=== PATIENT | female | born 1950 | race Caucasian/White ===

== ENCOUNTER → 2017-11-08 | Outpatient (CLI) | payer MEDICARE, OTHER ==
[~2017-11-08] MED LIST: AMLO10 PO; ATOR10 PO; CEPH500 PO; ELIQUIS5 MG PO; ENAL10; ESTR.05TPW; FELO5CR; HYDACE5 PO; HYDCHL25 PO; LOSHYD PO; MELA3 PO; PARO20 PO; RANI150 PO; ROFE25 PO
== END | disposition home or self-care (01) ==
LOC: LAB 14:17 → LAB SHORT 14:17
DX: R30.0 Dysuria (principal)
CPT/HCPCS: 87086

== ENCOUNTER 2017-11-18 08:48 | Day surgery (SDC) | payer MEDICARE, OTHER ==
[~2017-11-18] VITALS: Ht 167.6 cm; Wt 111.1 kg
[~2017-11-18 08:48] MED LIST changes: +ALBUTEROL MDI; +Omeprazole20 M1 PO; -RANI150 PO; +VITAMIN D350000 UNIT PO; +Zantac150 MG PO
== END 2017-11-18 23:30 | disposition home or self-care (01) ==
LOC: ORSCMMR 08:48 → ORD 10:00 → ORSCMMR 10:00
PROVIDERS: Internal Medicine Gastroenterology
PROC: 0DBN8ZX Excision of Sigmoid Colon, Via Natural or Artificial Opening Endoscopic, Diagnostic (ICD-10-PCS; principal; 2017-11-18 10:00)
PROC: 0DBK8ZX Excision of Ascending Colon, Via Natural or Artificial Opening Endoscopic, Diagnostic (ICD-10-PCS; principal; 2017-11-18 10:00)
PROC: 0DBL8ZX Excision of Transverse Colon, Via Natural or Artificial Opening Endoscopic, Diagnostic (ICD-10-PCS; principal; 2017-11-18 10:00)
DX: Z12.11 Encounter for screening for malignant neoplasm of colon (principal); K63.5 Polyp of colon; K57.30 Diverticulosis of large intestine without perforation or abscess without bleeding; K64.8 Other hemorrhoids; G47.33 Obstructive sleep apnea (adult) (pediatric); I48.91 Unspecified atrial fibrillation; I10 Essential (primary) hypertension; F32.9 Major depressive disorder, single episode, unspecified; E78.00 Pure hypercholesterolemia, unspecified; K21.9 Gastro-esophageal reflux disease without esophagitis; Z79.899 Other long term (current) drug therapy
CPT/HCPCS: 88305; J2250; J3010; J7030; J7120

== ENCOUNTER 2018-01-22 11:34 | Day surgery (SDC) | payer MEDICARE, OTHER ==
[~2018-01-22] VITALS: Ht 165.1 cm; Wt 110.2 kg
[~2018-01-22 11:34] MED LIST changes: -ALBUTEROL MDI; +ALBUTEROL MDI INH; +DIAZ1KIT4 PO; +Estrace Vagin42.5 GM VAG; +Flonase 0.05% N16 GM; +TRAZ50 PO
[2018-01-23 04:10] LABS: BASOPHILS ABSOLUTE AUTO 0.01 K/mm3 (0.00-0.23); BASOPHILS PERCENT AUTO 0 % (0-2); EOSINOPHILS PERCENT AUTO 0 % (0-6); Hematocrit 35.6 % (33.0-51.0); Hemoglobin 11.8 g/dL (11.5-16.0); IMMATURE GRAN ABSOLUTE AUTO 0.05 K/mm3 (0.00-0.10); IMMATURE GRAN PERCENT AUTO 0 % (0-1); LYMPHOCYTES ABSOLUTE AUTO 0.91 K/mm3 (0.84-5.20); LYMPHOCYTES PERCENT AUTO 8 % (21-46); MONOCYTES ABSOLUTE AUTO 0.43 K/mm3 (0.16-1.47); MONOCYTES PERCENT AUTO 4 % (4-13); Mean Corpuscular HGB 28.3 pg (26.0-34.0); Mean Corpuscular HGB Conc 33.1 g/dL (31.5-36.5); Mean Corpuscular Volume 85 fL (80-100); Mean Platelet Volume 10.1 fL (9.1-12.4); NEUTROPHILS ABSOLUTE AUTO 10.44 K/mm3 (1.96-9.15); NEUTROPHILS PERCENT AUTO 88 % (41-73); Platelet Count 243 K/mm3 (150-400); RDW Coefficient Variation 12.5 % (11.7-14.2); Red Blood Cell Count 4.17 M/mm3 (3.80-5.20); White Blood Cell Count 11.84 K/mm3 (4.00-11.30)
[2018-01-23 04:26] LABS: Anion Gap 11 mmol/L (6-16); Blood Urea Nitrogen 17 mg/dL (8-24); Bun/Creatinine Ratio 21.7 (12.0-20.0); CO2, Blood 24 mmol/L (21-32); Calcium, Blood 8.8 mg/dL (8.5-10.1); Chloride, Blood 99 mmol/L (98-108); Creatinine, Blood 0.78 mg/dL (0.40-1.00); Glomerular Filtration Rate >60 (60-); Glucose, Blood 167 mg/dL (70-99); Magnesium, Blood 2.4 mg/dL (1.6-2.4); Sodium, Blood 134 mmol/L (136-145)
[2018-01-23] MEDS ORDERED: OXYC5 PO (13:45)
[2018-01-23] MEDS ORDERED: PROM25 PO (13:47)
== END 2018-01-23 16:18 | disposition home or self-care (01) ==
LOC: ORSCMMR 11:34 → ORD 13:30 → SURS 17:17 → ORSCMMR 01-23 16:18
PROVIDERS: Orthopaedic Surgery
PROC: 0SRC0J9 Replacement of Right Knee Joint with Synthetic Substitute, Cemented, Open Approach (ICD-10-PCS; principal; 2018-01-22 13:30)
PROC: 8E0YXBZ Computer Assisted Procedure of Lower Extremity (ICD-10-PCS; principal; 2018-01-22 13:30)
DX: M17.11 Unilateral primary osteoarthritis, right knee (principal); I10 Essential (primary) hypertension; I48.91 Unspecified atrial fibrillation; G47.33 Obstructive sleep apnea (adult) (pediatric); Z87.891 Personal history of nicotine dependence; E03.9 Hypothyroidism, unspecified; E66.01 Morbid (severe) obesity due to excess calories; Z68.39 Body mass index [BMI] 39.0-39.9, adult; Z79.899 Other long term (current) drug therapy; Z99.81 Dependence on supplemental oxygen
CPT/HCPCS: 36415; 73560-RT; 80048; 82565; 82947; 83735; 85025; 86850; 86900; 86901; 88300; 94640; 94762; 97110; 97116; 97162; 97530; C1713; C1776; G8978; G8979; G8980; J0171; J0690; J0735; J1100; J1815; J1885; J2250; J2370; J2405; J2795; J3010; J7120; Q0163

== ENCOUNTER → 2021-08-28 | Outpatient (CLI) | payer MEDICARE, OTHER ==
[~2021-08-28] MED LIST changes: +METF500C PO; +OXYC5 PO; +PROM25 PO; +Percocet 5-3251 EACH PO
[2021-08-28 19:43] LABS: Alanine Aminotransfer (ALT/SGP 19 U/L (12-78); Albumin, Blood 3.9 g/dL (3.4-5.0); Albumin/Globulin Ratio 1.1 (0.8-1.8); Alk Phos 80 U/L (50-136); Anion Gap 5 mmol/L (6-16); Aspartate Aminotrans (AST/SGOT 12 U/L (12-37); Bilirubin, Total 0.8 mg/dL (0.1-1.0); Blood Urea Nitrogen 13 mg/dL (8-24); CHOL/HDL RATIO 4.5; CO2, Blood 32 mmol/L (21-32); Calcium, Blood 9.9 mg/dL (8.5-10.1); Chloride, Blood 101 mmol/L (98-108); Cholesterol 217 mg/dL (50-200); Creatinine, Blood 0.76 mg/dL (0.40-1.00); Globulin, Blood 3.5 g/dL (2.2-4.0); Glomerular Filtration Rate >60 (60-); Glucose, Blood 134 mg/dL (70-99); HDL Cholesterol 48 mg/dL (>39); LDL/HDL RATIO 2.4; Low Density Lipoprotein Chol 117 mg/dL (0-110); Potassium, Blood 3.8 mmol/L (3.5-5.5); Sodium, Blood 138 mmol/L (136-145); Total Protein, Blood 7.4 g/dL (6.4-8.2); Triglycerides 259 mg/dL (30-160); Very Low Density Lipoprot Chol 51 mg/dL (6-32)
== END ==
LOC: LAB SHORT 08:16
PROVIDERS: Nurse Practitioner Family
DX: E11.9 Type 2 diabetes mellitus without complications (principal); E78.2 Mixed hyperlipidemia; F32.A Depression, unspecified; Z79.84 Long term (current) use of oral hypoglycemic drugs
CPT/HCPCS: 80053; 80061; 83036; 84443

== ENCOUNTER → 2022-03-26 | Outpatient (CLI) | payer MEDICARE, OTHER ==
[~2022-03-26] MED LIST changes: +AMLO5 PO; +GLIP2.5ER PO; +METO50 PO
== END ==
LOC: LAB SHORT 05:05 → LAB 05:05
DX: R30.0 Dysuria (principal)
CPT/HCPCS: 87086

== ENCOUNTER → 2023-06-25 | Outpatient (CLI) | payer MEDICARE, OTHER ==
[2023-06-25 17:51] LABS: BASOPHILS ABSOLUTE AUTO 0.07 K/mm3 (0.00-0.23); BASOPHILS PERCENT AUTO 1 % (0-2); EOSINOPHILS ABSOLUTE AUTO 0.18 K/mm3 (0.00-0.68); EOSINOPHILS PERCENT AUTO 3 % (0-6); Hematocrit 46.6 % (33.0-51.0); Hemoglobin 15.1 g/dL (11.5-16.0); IMMATURE GRAN ABSOLUTE AUTO 0.02 K/mm3 (0.00-0.10); IMMATURE GRAN PERCENT AUTO 0 % (0-1); LYMPHOCYTES ABSOLUTE AUTO 1.77 K/mm3 (0.84-5.20); LYMPHOCYTES PERCENT AUTO 29 % (21-46); MONOCYTES ABSOLUTE AUTO 0.73 K/mm3 (0.16-1.47); MONOCYTES PERCENT AUTO 12 % (4-13); Mean Corpuscular HGB 28.9 pg (26.0-34.0); Mean Corpuscular HGB Conc 32.4 g/dL (31.5-36.5); Mean Corpuscular Volume 89 fL (80-100); NEUTROPHILS PERCENT AUTO 55 % (41-73); Platelet Count 242 K/mm3 (150-400); RDW Coefficient Variation 12.3 % (11.7-14.2); RDW Standard Deviation 40.4 fL (35.1-46.3); Red Blood Cell Count 5.23 M/mm3 (3.80-5.20); White Blood Cell Count 6.17 K/mm3 (4.00-11.30)
[2023-06-25 18:51] LABS: CHOL/HDL RATIO 7.2; Cholesterol 229 mg/dL (50-200); HDL Cholesterol 32 mg/dL (>39); LDL/HDL RATIO 3.7; Low Density Lipoprotein Chol 120 mg/dL (0-110); Magnesium, Blood 2.3 mg/dL (1.6-2.4); Triglycerides 387 mg/dL (30-160); Very Low Density Lipoprot Chol 77 mg/dL (6-32)
[2023-06-25 19:04] LABS: Microalb/Creat Ratio UR, Rand 67.876 mg/g (0.000-30.000); Microalbumin, Random Urine 76.7 mg/L (0.000-20.000)
[2023-06-27 20:08] LABS: A/G RATIO 1.8 (1.2-2.2); BILIRUBIN, TOTAL 0.2 mg/dL (0.0-1.2); CALCIUM, SERUM 9.4 mg/dL (8.7-10.3); CREATININE, SERUM 0.87 mg/dL (0.57-1.00); GLOBULIN, TOTAL 2.5 g/dL (1.5-4.5); POTASSIUM, SERUM 4.7 mmol/L (3.5-5.2); PROTEIN, TOTAL, SERUM 6.9 g/dL (6.0-8.5)
== END ==
LOC: LAB 16:22 → LAB SHORT 16:22
PROVIDERS: Family Medicine
DX: E11.9 Type 2 diabetes mellitus without complications (principal); E55.9 Vitamin D deficiency, unspecified; E78.2 Mixed hyperlipidemia; I10 Essential (primary) hypertension; R53.83 Other fatigue
CPT/HCPCS: 80053; 80061; 82043; 82306; 82533; 82570; 83036; 83735; 84443; 85025

== ENCOUNTER → 2024-12-03 | Outpatient (CLI) | payer MEDICARE, OTHER | LOC: LAB SHORT 11:45 → LAB 11:45 | DX: R30.0 Dysuria (principal) | CPT/HCPCS: 87086 ==